=== PATIENT | male | born 1940 | race Hispanic/Latino ===

== ENCOUNTER 2017-09-04 10:59 | Day surgery (SDC) | payer MEDICARE, OTHER ==
[~2017-09-04 10:59] MED LIST: IOPIDINE OS ONE; MYDRIACYL OS ONE; NEOFRIN OS ONE
[2017-09-04] MEDS ORDERED: IOPIDINE ONE (11:24)
[2017-09-04] MEDS ORDERED: MYDRIACYL ONE (11:24)
[2017-09-04] MEDS ORDERED: NEOFRIN ONE (11:24)
[2017-09-04] MEDS ORDERED: IOPIDINE OS ONE (11:30)
[2017-09-04] MEDS ORDERED: MYDRIACYL OS ONE (11:30)
[2017-09-04] MEDS ORDERED: NEOFRIN OS ONE (11:30)
[2017-09-04 13:47] VITALS: BP 138/76
== END 2017-09-04 11:00 | disposition home or self-care (01) ==
LOC: OR 10:59
PROVIDERS: ATTEND Specialist
DX: E11.36 Type 2 diabetes mellitus with diabetic cataract (principal); E11.39 Type 2 diabetes mellitus with other diabetic ophthalmic complication; H40.9 Unspecified glaucoma; N40.0 Benign prostatic hyperplasia without lower urinary tract symptoms; E78.00 Pure hypercholesterolemia, unspecified; I10 Essential (primary) hypertension; H26.492 Other secondary cataract, left eye; Z79.899 Other long term (current) drug therapy; Z98.890 Other specified postprocedural states
CPT/HCPCS: 82962